=== PATIENT | female | born 1960 | race Caucasian/White ===

== ENCOUNTER → 2016-09-15 | Outpatient (CLI) | payer BC ==
[~2016-09-15] MED LIST: FLAGYL; IBUPROFEN PO; LEVAQUIN; LIPITOR20 MG PO; PANTOPRAZOLE SO40 MG PO; TOPAMAX; TOPAMAX25 MG PO; ZOMIG ZMT5 MG/TAB
--- NOTE | ~2016-09-15 | MY11 ---
[facility] A Service of [facility] RADIOLOGY TEXT RESULTS PATIENT: LORENA WOOD LOCATION: [facility] : 60 UNIT #: [id number] AGE: [address]: ANTIONETTE BERNARDO APRN SEX: F ORDER DR: [id number] [facility] [address] [place], [place] [address] [id number] O MR#: [id number] Acc #: [id number] NAME: LORENA WOOD : 1960 SEX: F STUDY DATE/TIME: 09/15/2016 10:02 UNIT: [facility] ROOM: STUDY DESCRIPTION: MY Mammogram Screening Dig Abe Attending Physician: Antionette Bernardo Aprn Referring Physician: Antionette Bernardo Aprn Ordering Physician: Antionette Bernardo Aprn Primary Care Physician: Antionette Bernardo Aprn MEDICAL IMAGING REPORT This report is preliminary unless electronic signature is present EXAM Bilateral digital screening mammogram with CAD, 09/15/2016 INDICATION 56-year-old female for routine screening. No reported problems and no personal or family history of breast cancer. History of breast implant placement in 2003. TECHNIQUE CC, MLO and implant displaced views of the breasts were obtained and reviewed with an FDA-approved CAD device. COMPARISON 09/10/2012, 07/23/2009, 12/24/2007 FINDINGS There are bilateral retropectoral saline implants present. They appear symmetric and intact. There is no new dominant nodule, mass or suspicious cluster of microcalcifications. IMPRESSION Benign screening mammogram. One year followup recommended. Patients over the age of 40 are entered into a reminder system with target due date for the next mammogram. A result letter will also be sent to the patient. BIRADS: 2 Benign Finding Dictated by... Ki Fountain M.D. THIS IS AN ELECTRONICALLY VERIFIED REPORT [facility] A Service of [facility] RADIOLOGY TEXT RESULTS PATIENT: LORENA WOOD LOCATION: [facility] : 60 UNIT #: [id number] AGE: [address]: ANTIONETTE BERNARDO INVESTIGATOR UTILITY BILL COMPLAINTS SEX: F ORDER DR: Ki Fountain M.D. at 09/15/2016 4:13 PM JESSICA/kyle TD: 09/15/2016 15:09 JOB #: [id number] MEDICAL IMAGING REPORT COPY
== END | disposition home or self-care (01) ==
LOC: CWCC 09:30
DX: Z12.31 Encounter for screening mammogram for malignant neoplasm of breast (principal); Z98.82 Breast implant status
CPT/HCPCS: G0202

== ENCOUNTER → 2016-12-08 | Day surgery (SDC) | payer BC ==
--- NOTE | ~2016-12-08 | OR ---
Unit #: [id number] #: [id number] Patient: LORENA WOOD [id number] [address] [place], [place] [address] [id number] O MR#: [id number] NAME: LORENA WOOD ROOM: Date of Procedure: 12/08/2016 Admission Date: 12/08/2016 Surgeon: Owen Moya M.D. : 1960 Attending Physician: Owen Moya M.D. Primary Care Physician: María Catalan M.D. OPERATIVE REPORT PREOPERATIVE DIAGNOSES The patient presented for surveillance colonoscopy. She has personal history of removal of colonic adenomas in the past. PROCEDURE PERFORMED Colonoscopy up to cecum with excellent preparation and good visualization. POSTOPERATIVE DIAGNOSES The patient had mild sigmoid and descending colon diverticulosis. Otherwise, examination was normal up to cecum. The quality of the prep was excellent. No polyps were seen. RECOMMENDATIONS Repeat colonoscopy in 5 years. SEDATION USED MAC. DESCRIPTION OF PROCEDURE Following detailed explanation of the potential risks and complications of a colonoscopy, namely perforation, bleeding, and complications related to sedation, the patient was brought to GI lab and laid in the left lateral decubitus position. A digital rectal examination was performed, which was normal. Lubricated tip of the Olympus video colonoscope was inserted through the anus and advanced under direct vision. The scope was advanced and passed up to sigmoid into descending colon. Scant small diverticula were noted in this area. The scope tip was then navigated all the way up to cecum with visualization of the ileocecal valve and the appendiceal orifice. Preparation was excellent with good visualization and photodocumentation was obtained. Successive segments of the colonic mucosa were examined upon withdrawal and appeared unremarkable. There being no polyps, mass lesions, or AVMs. Other than the scant diverticula seen in the left side, no other abnormalities were noted. The patient did not have any hemorrhoids at anal verge. The scope was then withdrawn. The patient returned to recovery area. She tolerated the procedure without any postprocedure complications. Dictated by... Owen Moya M.D. Unit #: [id number] #: [id number] Patient: LORENA WOOD MARIO/moshe TD: 12/09/2016 01:16 JOB #: [id number] OPERATIVE REPORT Page 1 of 1 X Owen Moya MD PROCEDURE OPERATIVE NOTE
== END | disposition home or self-care (01) ==
LOC: COPS 07:26
DX: Z12.11 Encounter for screening for malignant neoplasm of colon (principal); K57.30 Diverticulosis of large intestine without perforation or abscess without bleeding; K21.9 Gastro-esophageal reflux disease without esophagitis; K52.9 Noninfective gastroenteritis and colitis, unspecified; E78.5 Hyperlipidemia, unspecified; Z79.899 Other long term (current) drug therapy; Z98.51 Tubal ligation status; Z90.710 Acquired absence of both cervix and uterus; Z98.890 Other specified postprocedural states
CPT/HCPCS: J2250

== ENCOUNTER → 2017-02-04 | Outpatient (CLI) | payer BC ==
--- NOTE | ~2017-02-04 | MR165 ---
[facility] A Service of [facility] RADIOLOGY TEXT RESULTS PATIENT: LORENA WOOD LOCATION: [facility] : 60 UNIT #: [id number] AGE: [address]: Aram Valencia MD SEX: F ORDER DR: [id number] [address] [address] [id number] O MR#: [id number] Acc #: [id number] NAME: LORENA WOOD : 1960 SEX: F STUDY DATE/TIME: 02/04/2017 8:57 UNIT: [facility] ROOM: STUDY DESCRIPTION: MR Shoulder Wo Contrast Rt Attending Physician: Aram Valencia M.D. Referring Physician: Aram Valencia M.D. Ordering Physician: Aram Valencia M.D. Primary Care Physician: Aram Valencia M.D. MRI CENTER REPORT This report is preliminary unless electronic signature is present. EXAM MRI of the right shoulder HISTORY 56-year-old female who complains of increasing right shoulder pain over the past year but has had more longstanding shoulder pain. Complains of decreased range of motion, decreased strength. History of a partial tear in 2007. COMPARISON MRI of the right shoulder 10/30/2007. TECHNIQUE Multiplanar, multiecho imaging is performed of the right shoulder utilizing a high-field magnet and dedicated protocol. FINDINGS There is mild AC joint arthropathy with capsular hypertrophy and a small amount of periarticular edema. Marrow signal within the proximal humerus and glenoid appears normal. Joint fluid within normal limits. There is a focus of high T2 signal involving the distal insertion of the supraspinatus tendon measuring approximately 9 mm in AP by 7 mm [id number] dimension. This may represent an area of focal tendinopathy or degeneration and possible small bursal-sided tear but no definite communication to the articular surface is identified. This is similar to the findings in 2008 and has shown no significant progression. No full-thickness tear is identified. The infraspinatus, teres minor and subscapularis tendons appear intact. No muscle atrophy or edema. Superior labrum, biceps anchor and long tendon of the biceps appears intact. Anterior and posterior labrum unremarkable. Extraarticular soft tissues appear normal. [facility] A Service of [facility] RADIOLOGY TEXT RESULTS PATIENT: LORENA WOOD LOCATION: [facility] : 60 UNIT #: [id number] AGE: [address]: Aram Valencia MD SEX: F ORDER DR: IMPRESSION 1. A 7 x 9 mm focus of T2 hyperintensity and/or cystic change within the insertional and pre-insertional supraspinatus tendon. This may represent an area of partial tear or focal degeneration but does not appear significantly changed from the 2008 study. Clearly no evidence of a full-thickness tear is identified and this may represent a partial-thickness bursal-sided tear. 2. Mild AC joint arthropathy with some periarticular edema suggesting active inflammation. Dictated by... Silvia Nicholas M.D. THIS IS AN ELECTRONICALLY VERIFIED REPORT Silvia Nicholas M.D. at 02/05/2017 4:00 PM HARITHA/mera TD: 02/05/2017 09:32 JOB #: [id number] MRI CENTER REPORT Page 1 of 1
== END | disposition home or self-care (01) ==
LOC: CMRI 02-03 08:00 → SMRI 08:34 → CMRI 08:45
DX: S46.911A Strain of unspecified muscle, fascia and tendon at shoulder and upper arm level, right arm, initial encounter (principal); M19.011 Primary osteoarthritis, right shoulder
CPT/HCPCS: 73221